=== PATIENT | female | born 1945 | race Caucasian/White ===

== ENCOUNTER 2024-09-09 18:03 | Emergency (ER) | payer OTHER, SELFPAY ==
[2024-09-09 18:06] VITALS: BP 101/61
[2024-09-09 18:09] VITALS: BP 101/61
--- NOTE | 2024-09-09 18:19 | ED.GENMED ---
History of Present Illness
General
Chief Complaint: Fainting Sensation
Source: patient
Time Seen by Provider: 09/09/24 18:04
History of Present Illness
History of Present Illness:
79-year-old female presents to the emergency room by ambulance after experiencing an episode of dizziness. Patient has had a independent living facility. While walking back from dinner she began to feel lightheaded. She was assisted into a
wheelchair and taken back to her room. She laid down for little while began feeling better. However the staff at the facility insisted she come to the emergency room to be checked out. Patient denies any chest pain or palpitations during the
event. She denies any associated nausea, vomiting. She did get a bit clammy during the event. She feels back to baseline now. Patient takes Synthroid but no other prescription medications. She was on a cruise a few days ago where she had a fall
and struck her head. She did not lose consciousness at that time. She has not had a headache since the fall but states she 'hit her head very hard'. She is concerned that the fall may have something to do with the event tonight.
Phy Exam
Physical Exam
Physical Exam:
General: Awake, Alert, Oriented X3. No acute distress.
Vitals: unremarkable
Head: Atraumatic
Eyes: Pupils equal, EOMI
Throat: Airway intact, no exudates
Neck: Trachea midline
Lungs: Clear and equal b/l
Heart: Regular rate, no murmurs
Abd: Soft, Nontender, No pulsatile mass
Neuro: Nonfocal
Skin: Warm, dry, no rash
Extremities: pulses equal b/l, no edema
Course
Orders/Labs/Results
Orders:
Orders
09/09/24 18:18
CT Head W/o Iv Contrast Urgent
Comment:
Reason For Exam: dizziness, recent head injury
09/09/24 18:25
Basic Metabolic Panel Urgent
Complete Blood Count/With Diff Urgent
Magnesium Urgent
Manual Differential Urgent
Abnormal Lab Results
09/09/24
18:25
MCHC 32.7 L g/dL
(33.0-37.0)
Band Neutrophils 4 H %
(0-3)
Lymphocytes (Manual) 11 L %
(20-51)
Monocytes (Manual) 1 L %
(2-9)
BUN 21 H mg/dl
(7-17)
Magnesium 1.5 L mg/dl
(1.6-2.3)
09/09/24 18:25
09/09/24 18:25
Vital Signs
Initial and Last Documented VS:
Initial Vital Signs
Temp Pulse Resp BP Pulse Ox
98.8 F 75 15 101/61 96
09/09/24 18:06 09/09/24 18:06 09/09/24 18:06 09/09/24 18:06 09/09/24 18:06
Last Documented Vital Signs
Temp Pulse Resp BP Pulse Ox
98.8 F 67 13 111/68 37
09/09/24 18:06 09/09/24 20:00 09/09/24 20:00 09/09/24 20:16 09/09/24 20:17
MDM/Problems Addressed
Differential Diagnosis Includes:
Near syncope, cardiac dysrhythmia, anemia
MDM/Problems Addressed:
Patient's work appears unremarkable. Labs are unremarkable. Suspect vasovagal event. Patient able to ambulate here in the emergency room without any difficulty. Stable for discharge back to her facility
*Pulse Oximetry
Patient hypoxic: no
*Warranty Coordinator Interpretation
Rate: normal
Interpretation: normal
Rhythm: sinus
*Critical Care Note
Total Time (30-74mins, 75-104mins- exclusive of procedures): Not Applicable
ED Attending Note
-
Portions of this chart may have been created with voice recognition software.� Occasional wrong word or��sound alike� substitutions may have occurred due to the inherent limitations of voice recognition software.
Discharge Plan
Departure
Patient Disposition: Home (Routine Discharge)
Date of Disposition: 09/09/24
Time of Disposition: :24
Patient with high blood pressure during this ER visit?: No
Condition: Good
Discharge Problem:
Near syncope
Instructions: Near Fainting (DC)
Referrals:
Tracey Dyer PA-C [Family Provider] -
Interventions
Interventions:
*Risk Screen - Suicide Last Done: 09/09/24 18:15
*General Assessment Last Done: 09/09/24 18:15
*Neglect/Abuse Screening Last Done: 09/09/24 18:15
ED- Fall Risk Assessment Last Done: 09/09/24 20:30
*ED COVID-19 Vaccine History Last Done: 09/09/24 18:15
*Nursing Disposition Last Done: 09/09/24 20:30
ED- Cardiac Assessment Last Done: 09/09/24 18:15
ED- Neurological Assessment Last Done: 09/09/24 18:15
Discharge Date and Time
Discharge Date/Time: 09/09/24 20:43
Print Language: SWEDISH
[2024-09-09 18:42] LABS: Hematocrit 38.8 % (37.0-47.0); Hemoglobin 12.7 g/dL (12.0-16.0); Mean Corp Hgb Conc. 32.7 g/dL (33.0-37.0); Mean Corpuscular Hgb 29.5 pg (27.0-31.0); Mean Platelet Volume 10.3 fL (7.4-10.4); Platelet Count 150 10^3/uL (130-400); Red Blood Cell Count 4.31 10^6/uL (4.20-5.40); Red Cell Dist. Width 13.5 % (11.5-14.5); White Blood Cell Count 6.1 10^3/uL (4.8-10.8)
[2024-09-09 18:49] VITALS: BMI 28.6
[2024-09-09 18:57] LABS: Blood Urea Nitrogen 21 mg/dl (7-17); Calcium 9.3 mg/dl (8.4-10.2); Carbon Dioxide 23 mmol/L (22-30); Chloride 104 mmol/L (98-107); Estimated Creatinine Clearance 60 ml/min; Glucose 90 mg/dl (70-99); Magnesium 1.5 mg/dl (1.6-2.3); Potassium 4.1 mmol/L (3.5-5.1); Sodium 141 mmol/L (135-145); eGFR > 60.00
[2024-09-09 19:00] VITALS: BP 105/60
[2024-09-09 19:08] LABS: Absolute Neutrophils -Man Diff 4.4 10^3/uL (1.4-6.5); Atypical Lymphocytes 1 %; Band Neutrophils 4 % (0-3); Lymphocytes 11 % (20-51); Metamyelocytes 9 % (-); Monocytes 1 % (2-9); Myelocytes 4 % (-); Normal RBC Morphology Yes; Pathologist Reviewed No; Platelets Checked Yes; Promyelocytes 1 % (-); Segmented Neutrophils 69 % (42-75); Total Cells Counted 100
[2024-09-09 20:00] VITALS: BP 102/64
[2024-09-09 20:16] VITALS: BP 111/68
== END 2024-09-09 20:43 | disposition home or self-care (01) ==
LOC: EMR 18:03
PROVIDERS: EMERGENCY PHYSICIAN Emergency Medicine; FAMILY PHYSICIAN Physician Assistant
DX: R55 Syncope and collapse (principal)
CPT/HCPCS: 99284; 70450; 80048; 83735; 85025

== ENCOUNTER → 2024-10-15 10:05 | Outpatient (REF) | payer OTHER, SELFPAY | LOC: RCS 10:05 | PROVIDERS: ATTENDING PHYSICIAN Physician Assistant | DX: R00.9 Unspecified abnormalities of heart beat (principal); I49.1 Atrial premature depolarization; I49.3 Ventricular premature depolarization; I47.10 Supraventricular tachycardia, unspecified | CPT/HCPCS: 93225; 93226 ==

== ENCOUNTER → 2025-02-18 10:24 | Outpatient (REF) | payer OTHER, SELFPAY | LOC: HWRAD 10:24 | PROVIDERS: ATTENDING PHYSICIAN Physician Assistant | DX: M85.80 Other specified disorders of bone density and structure, unspecified site (principal) | CPT/HCPCS: 77080 ==

== ENCOUNTER → 2025-05-12 09:07 | Outpatient (REF) | payer OTHER, SELFPAY | LOC: HWRAD 09:07 | PROVIDERS: ATTENDING PHYSICIAN Physician Assistant | DX: R79.89 Other specified abnormal findings of blood chemistry (principal) | CPT/HCPCS: 76700 ==

== ENCOUNTER → 2025-07-19 13:35 | Outpatient (REF) | payer OTHER, SELFPAY | LOC: HWRAD 13:35 | PROVIDERS: ATTENDING PHYSICIAN Physician Assistant | DX: M25.512 Pain in left shoulder (principal) | CPT/HCPCS: 73030 ==